=== PATIENT | female | born 1940 | race African-American/Black ===

== ENCOUNTER → 2017-03-13 | Day surgery (SDC) | payer BC ==
[~2017-03-13] MED LIST: AMLO5TAB4 PO; ASPI325T8 PO; CARV25TA PO; CRESTOR40 MG PO; EZET10TA18 PO; HYDROmorphone 2 MG/ML VIAL IV PRN; IV RINGERS,LACTATED 1000ML 1,000 ML IV SCH; LIDOCAINE 1% 1 ML SYRINGE. ID PRN; LIDOCAINE 2% PF Vial for OR 5 ML VIAL. ONE; MORPHINE SULFATE 2 MG/ML DISP.SYRIN. IV PRN; ONDANSETRON PF 4 MG/2 ML VIAL. IV PRN; PROCHLORPERAZINE 10 MG/2 ML VIAL. IV PRN; PROPOFOL 20 ML IV ONE; RANO500T2 PO; fentaNYL PF VIAL 100 MCG/2 ML VIAL IV PRN
--- NOTE | 2017-03-13 08:44 | PDOC1 ---
HISTORY & PHYSICAL H&P Christina Jeffrey [id number] 1940 02/16/2017 11:00 AM 08/13 [facility] [address] [place], [place] [id number] Ph. [phone] Patient: Christina Jeffrey Date of : 1940 Date: 02/16/2017 11:00 AM Visit Type: Consult This 76 year old female presents for H/o colorectal polyp and Altered bowel habits. History of Present Illness: 1. H/o colorectal polyp Prior screening: colonoscopy. Risk Factors: h/o colon polyp. Pertinent negatives include abdominal pain, change in bowel habits, change in stool caliber, constipation, decreased appetite, diarrhea, melena, nausea, rectal bleeding, vomiting, weight gain and weight loss. Additional information: No family history of colon cancer, No family history of Crohn's/colitis and No NSAID/ASA use. 2. Altered bowel habits Pertinent negatives include abdominal pain, change in stool caliber, nausea, vomiting, weight gain and weight loss. Additional information: Patient has some involuntary expulsion of stool. Has also some urgency of evacuation. History of H. Pylori. Has foul smelling stool. INTAKE COMMENTS: Intake Comments: Nurse Note: the pt is here today due to a h/o colon polyps in 2003 and 2012. The pt states that she is having issues with her BM's, she will have a BM without even knowing it and it has a really bad smell to it. PROBLEM LIST: Problem Description Onset Date Chronic Notes Hypertension 02/16/2017 Y PAST MEDICAL/SURGICAL HISTORY (Detailed) Disease/disorder Onset Date Management Date Comments Cardiac stents placed colonoscopy 2012 tracheotomy Coronary angioplasty Colon polyps Colonoscopy 2003 Coronary artery disease Dyslipidemia Hypertension tubal pregnacy tube removal Medications (Active): Started Medication Directions Instruction Stopped amlodipine 5 mg tablet take 1 tablet by oral route every day aspirin 325 mg tablet take 2 tablet by oral route every 6 hours as needed Benadryl 25 mg capsule take 1 capsule by oral route every 4 hours as needed Coreg 25 mg tablet take 1 tablet by oral route 2 times every day with food Crestor 40 mg tablet take 1 tablet by oral route every day ibuprofen 800 mg tablet take 1 tablet by oral route 3 times every day with food Lasix 20 mg tablet take 1 tablet by oral route every day nitroglycerin 0.[address] 1 tablet by sublingual route at the 1st sign of attack; may repeat every 5 min until relief; if pain persists after 3 tablets in 15 min, prompt medical attention is recommended ProAir HFA 90 mcg/actuation aerosol inhaler inhale 1 puff by inhalation route every 4 - 6 hours as needed promethazine-DM 6.25 mg-15 mg/5 mL syrup take 5 milliliter by oral route every 6 hours as needed Ranexa 500 mg tablet,extended release take 1 tablet by oral route 2 times every day Zetia 10 mg tablet take 1 tablet by oral route every day Zovirax 5 % topical ointment apply by topical route every 3 hours 6 times per day to the affected area(s) Allergies: Ingredient Reaction Medication Name Comment PENICILLINS TRIAMTERENE Dyazide LISINOPRIL IODINE HYDROCHLOROTHIAZIDE Dyazide REVIEW OF SYSTEMS System Neg/Pos Details Constitutional Negative Chills, fever, malaise, weight gain and weight loss. ENMT Negative Sore throat. Eyes Negative Double vision. Respiratory Negative Dyspnea and wheezing. Cardio Negative Chest pain and irregular heartbeat/palpitations. GI Positive See HPI. GI Negative Abdominal pain, change in bowel habits, change in stool caliber, constipation, decreased appetite, diarrhea, melena, nausea, see HPI, rectal bleeding and vomiting. Negative Dysuria and hematuria. Endocrine Negative Cold intolerance and heat intolerance. Psych Negative Anxiety. Integumentary Negative Hives and rash. MS Negative Joint pain. Vernon/Lymph Negative Easy bleeding and easy bruising. Allergic/Immuno Negative Food allergies. VITAL SIGNS Time BP mm/Hg Pulse /min Resp /min Temp F Ht ft Ht in Ht cm Wt lb Wt kg BMI kg/ m2 BSA m2 O2 Sat% 10:53 AM 122/80 66 97.1 5.0 7.00 170.18 171.60 77.836 26.88 1.92 98 Time Measured by 10:53 AM [facility] PHYSICAL EXAM: Exam Findings Details Constitutional Normal Well developed. Eyes Normal Conjunctiva - Right: Normal, Left: Normal. Sclera - Right: Normal, Left: Normal. Nasopharynx Normal Lips/teeth/gums - Normal. Neck Exam Normal Inspection - Normal. Thyroid gland - Normal. Respiratory Normal Inspection - Normal. Auscultation - Normal. Cardiovascular Normal Regular rate and rhythm. No murmurs, gallops, or rubs. Vascular Normal Pulses - Carotids: Normal, Femoral: Normal, Dorsalis pedis: Normal. Abdomen Normal Inspection - Normal. Anterior palpation - No guarding. No abdominal tenderness. No hepatic enlargement. No splenic enlargement. No hernia. No Ascites. Skin Normal Inspection - Normal. Extremity Normal No edema. Psychiatric Normal Oriented to time, place, person, and situation. Appropriate mood and effect. Assessment/Plan # Detail Type Description 1. Assessment Change in bowel habit (R19.4). Patient Plan Anal sphincter strengthening exercise. Get stool H.Pylori antigen results from her PCP. If not available then to order stool H. Pylori antigen. 2. Assessment History of colon polyps (Z86.010). Plan Orders Further diagnostic evaluations ordered today include(s) Colonoscopy to be performed today. She is to schedule a follow-up visit with Sabrina Suazo MD upon completion of work-up 3. Assessment H. pylori infection (A04.8). Patient Plan Await stool H. Pylori antigen result. Electronically signed by: Sabrina Suazo MD 02/16/2017 12:29 PM Document generated by: Sabrina Suazo 02/16/2017 12:29 PM Elin Acevedo MD, Family Practice; Esdras Yu MD Internal Medicine; Mary Hartley MD, Internal Medicine; Yan Suazo MD Internal Medicine; Sabrina Suazo MD, Gastroenterology; Chintan Mcbride MD, Rheumatology, S. Miles Corea, Physical Medicine/Rehab JWilmer Spence APRN ------ 03/13/17 Patient seen and examined. No change in H&P SUAZO,SABRINA N MD Mar 13, 2017 08:44
[2017-03-13 08:55] VITALS: BP 134/68
== END | disposition home or self-care (01) ==
LOC: ENDOS 06:57
PROVIDERS: ATTEND Internal Medicine Gastroenterology
DX: Z09 Encounter for follow-up examination after completed treatment for conditions other than malignant neoplasm (principal); Z87.19 Personal history of other diseases of the digestive system; K57.30 Diverticulosis of large intestine without perforation or abscess without bleeding; E78.00 Pure hypercholesterolemia, unspecified; I10 Essential (primary) hypertension; J44.9 Chronic obstructive pulmonary disease, unspecified; Z88.0 Allergy status to penicillin; Z88.8 Allergy status to other drugs, medicaments and biological substances; Z91.041 Radiographic dye allergy status
CPT/HCPCS: 45378; J2001; J2704

== ENCOUNTER → 2020-05-06 | Outpatient (CLI) | payer OTHER ==
[2017-03-13 08:55] VITALS: BP 134/68
[~2020-05-06] MED LIST changes: -EZET10TA18 PO; +EZET10TA20 PO; -HYDROmorphone 2 MG/ML VIAL IV PRN; -IV RINGERS,LACTATED 1000ML 1,000 ML IV SCH; -LIDOCAINE 1% 1 ML SYRINGE. ID PRN; -LIDOCAINE 2% PF Vial for OR 5 ML VIAL. ONE; -MORPHINE SULFATE 2 MG/ML DISP.SYRIN. IV PRN; -ONDANSETRON PF 4 MG/2 ML VIAL. IV PRN; -PROCHLORPERAZINE 10 MG/2 ML VIAL. IV PRN; -PROPOFOL 20 ML IV ONE; -fentaNYL PF VIAL 100 MCG/2 ML VIAL IV PRN
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
== END | disposition home or self-care (01) ==
LOC: RAD 14:46
PROVIDERS: ATTEND Family Medicine
DX: M47.812 Spondylosis without myelopathy or radiculopathy, cervical region (principal); M50.321 Other cervical disc degeneration at C4-C5 level; I25.10 Atherosclerotic heart disease of native coronary artery without angina pectoris; M40.50 Lordosis, unspecified, site unspecified; V89.2XXA Person injured in unspecified motor-vehicle accident, traffic, initial encounter
CPT/HCPCS: 72040; 73030

== ENCOUNTER → 2020-05-17 | Outpatient (CLI) | payer OTHER, MEDICARE ==
[2017-03-13 08:55] VITALS: BP 134/68
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
== END ==
LOC: KCIC MRI 08:39
PROVIDERS: ATTEND Family Medicine
DX: M47.813 Spondylosis without myelopathy or radiculopathy, cervicothoracic region (principal); M75.112 Incomplete rotator cuff tear or rupture of left shoulder, not specified as traumatic; M25.78 Osteophyte, vertebrae; M48.02 Spinal stenosis, cervical region; M75.82 Other shoulder lesions, left shoulder; V89.2XXA Person injured in unspecified motor-vehicle accident, traffic, initial encounter
CPT/HCPCS: 70551; 72141; 73221

== ENCOUNTER 2020-12-07 05:44 | Day surgery (SDC) | payer MEDICARE ==
[~2020-12-07] VITALS: Ht 165.1 cm; Wt 80.3 kg
[~2020-12-07 05:44] MED LIST changes: +BUPIVACAINE MPF 0.5% 30 ML VIAL. ONE; +CLON0.1T PO; +DEXAMETHASONE SOD PHOS 20 MG/5 ML VIAL. ONE; +EPINEPHrine 1 MG/ML VIAL ONE; +FURO20TA3 PO; +LIDOCAINE 1% PF 2 ML VIAL. ONE; +MIDAZOLAM HCL/PF 2 MG/2 ML VIAL. ONE; +ROCURONIUM 50 MG/5 ML VIAL. ONE; +fentaNYL PF VIAL 100 MCG/2 ML VIAL ONE
[2020-12-07] MEDS ORDERED: IV RINGERS,LACTATED 1000ML 1,000 ML IV SCH (06:00)
[2020-12-07] MEDS ORDERED: PROCHLORPERAZINE 10 MG/2 ML VIAL. IVP PRN (06:00)
[2020-12-07] MEDS ORDERED: fentaNYL PF VIAL 100 MCG/2 ML VIAL IVP PRN ×2 (06:00)
[2020-12-07] MEDS ORDERED: CLINDAMYCIN 900MG PREMIX 50 ML IV PRN (06:00)
[2020-12-07] MEDS ORDERED: MORPHINE SULFATE 2 MG/ML VIAL. IVP PRN (06:00)
[2020-12-07] MEDS ORDERED: HYDROmorphone 2 MG/ML VIAL IVP PRN (06:00)
[2020-12-07] MEDS ORDERED: ePHEDrine PF IN SALINE 50 MG/10 ML SYRINGE. IV ONE (06:43)
[2020-12-07] MEDS ORDERED: CLINDAMYCIN 900MG PREMIX 50 ML IV ONE (07:09)
[2020-12-07] MEDS ORDERED: EPINEPHrine VIAL 30 MG/30 ML VIAL ONE (07:10)
[2020-12-07] MEDS ORDERED: ONDANSETRON PF 4 MG/2 ML VIAL. ONE (07:18)
[2020-12-07] MEDS ORDERED: PROPOFOL 10 MG/ML (20ML) VIAL. IV ONE (07:18)
[2020-12-07] MEDS ORDERED: SEVOFLURANE > 120 MINUTES. IH ONE (07:18)
[2020-12-07] MEDS ORDERED: LIDOCAINE 2% PF 5 ML VIAL. ONE (07:18)
[2020-12-07] MEDS ORDERED: DEXAMETHASONE SOD PHOS 4 MG/ML VIAL ONE (07:18)
[2020-12-07] MEDS ORDERED: NEOSTIGMINE METHYLSULFATE 5 MG/5 ML SYRINGE. ONE (07:20)
[2020-12-07] MEDS ORDERED: GLYCOPYRROLATE 1 MG/5 ML VIAL. ONE (07:21)
[2020-12-07] MEDS ORDERED: NALOXONE 0.4 MG/ML VIAL. ONE (07:36)
[2020-12-07] MEDS ORDERED: OXYC1TAB19 PO (09:46)
--- NOTE | 2020-12-07 09:50 | SNU/HH DC ---
DISCHARGE WITH HOME HEALTH DISCHARGE INFORMATION: Discharge Date: Dec 07, 2020 Final Diagnosis: Left shoulder arthroscopy rotator cuff repair capsular release and extensive debridement Condition on Discharge: Stable CODE STATUS: Code Status: Full HOME HEALTH: Face to Face: I certify this patient is under my care and that I, or a nurse practitioner or physician's psychologist research assistant working with me, had a face to face encounter that meets the physician face to face encounter requirements with this patient on [12/07/2020]. Medical Complications: CABG, Other (Rotator cuff repair) RN For Eval/Treatment: No Physical Therapy For: Evalulation/Treatment (Passive range of motion of left shoulder only for 4 weeks postoperatively, note that she did have capsular release for adhesive capsulitis) Pt Meets Homebound Status: Fatigue w/ amb. POST DISCHARGE ORDERS: Activity Instructions for Disc: Other, see below (No active lifting of left elbow away from side of body, may do fine motor use with the elbow at the side such as eating writing and typing) Weight Bearing Status after Di: Non weight bearing DIET AFTER DISCHARGE: Cardiac Wound/Incision Care: Change dressing (Remove dressing in 2 days may then shower) FOLLOW-UP: Follow up with: Dr. Raza or Bárbara 7 to 10 days TREATMENT/EQUIPMENT ORDERS: Adaptive Equipment Issued: None (Shoulder immobilizer, must wear at night or sleeping and may remove during the day to do fine motor use with arm at side or shower as above) CERTIFICATION STATEMENT: Certification Statement: Certification Statement: Based on the above finding, I certify that this patient is confined to the home and needs intermittent correction care, physical therapy and/or speech therapy, or continues to need occupational therapy.~ This patient is under my care, and I have initiated the establishment of the plan of care.~ This patient will be followed by myself or a community physician who will periodically review the plan of care. Home Meds Reported Medications Furosemide (FUROSEMIDE) 20 Mg Tablet, 20 MG PO DAILY for NA, TAB 12/02/20 Clonidine Hcl (CLONIDINE HCL) 0.1 Mg Tablet, 0.1 MG PO DAILY for NA, TAB 12/02/20 Ranolazine (RANEXA) 500 Mg Tab.er.12h, 1 TAB PO BID, #60 TAB 3 Refills 03/13/17 Aspirin (ASPIRIN) 325 Mg Tablet, 1 TAB PO DAILY, #30 TAB 5 Refills 03/13/17 Carvedilol (COREG) 25 Mg Tablet, 1 TAB PO BID, #60 TAB 5 Refills 03/13/17 Ezetimibe (ZETIA) 10 Mg Tablet, 1 TAB PO DAILY, #30 TAB 5 Refills 03/13/17 Rosuvastatin Calcium (CRESTOR) 40 Mg Tablet, 1 TAB PO DAILY, #30 TAB 5 Refills 03/13/17 HECTOR RAZA MD Dec 07, 2020 09:50
[2020-12-07] MEDS ORDERED: IPRATRPIUM/ALBUTEROL 0.5/2.5MG 3 ML NEBU. ONE (11:27)
[2020-12-07] MEDS ORDERED: IPRATRPIUM/ALBUTEROL 0.5/2.5MG 3 ML NEBU. NEB ONE (11:30)
[2020-12-07 12:00] VITALS: BP 158/84
--- NOTE | 2020-12-07 13:33 | PDOC4 ---
Operative Note Operative Note Date of surgery: 12/07/2020 Preoperative diagnosis: Left shoulder adhesive capsulitis and suspected high- grade rotator cuff tear Postoperative diagnosis: Same with actual full-thickness distal supraspinatus tear adhesive capsulitis labral fraying and chondral flap tear humeral head Operative procedure: Left shoulder arthroscopy arthroscopic rotator cuff repair, capsular release debridement labrum and chondroplasty humeral head Surgeon: Luz Marina Window Unit Air Conditioning Mechanic: Tung chapa assist Anesthesia: General plus scalene block Estimated blood loss: 5 cc Complications: None Operative indications: Please see orthopedic clinic notes for detailed operative indications and note that patient has both pain stiffness and weakness of the left shoulder ongoing unresponsive to nonoperative management. MRI shows a suspicion of a high-grade rotator cuff tear and clinically she has adhesive capsulitis. We had talked about addressing any pathology present including the possibility of rotator cuff tear capsular release. We also talked about the possibility of continued pain nonhealing infection nerve or blood vessel damage medical or other anesthetic complications among others and the typical postoperative restrictions and need for physical therapy and home exercises. All her questions were answered she wishes to proceed with surgical evaluation and treatment Operative text: Patient was identified procedure verified patient placed in the supine position on the operating table. After adequate amounts of general anesthesia plus a pre-existing scalene block were obtained patient was placed in the decubitus position left side up all bony prominences were well-padded and the left shoulder was prepped and draped in standard sterile fashion. She was noted to have decreased range of motion in all planes and no instability. She was then placed in the arthroscopic arm cherry with a total of 10 pounds of traction and after timeout was performed patient procedure identified and verified a standard posterior portal was established an anterior portal established using spinal needle localization and the shoulder joint was systematically examined. She was noted to have significant superior labral fraying which was trimmed back to stable tissue no evidence of compromise of the biceps anchor or subscapularis insertion. She did have adhesive capsulitis and a chondral flap tear of the humeral head which was debrided back to stable tissue and was not a full-thickness defect. Capsular release was then performed. She was noted to have a full-thickness tear of the supraspinatus tendon at its most distal footprint. The subacromial space was then entered bursectomy was performed to allow visualization and the rotator cuff footprint was debrided back to stable tissue bleeding without decortication. A total of 2 juggernaut double loaded anchors were placed along the medial row and sutures were placed in a simple fashion. Lateral row fixation was then carried out obtaining a watertight repair examined under all degrees of internal/external rotation shoulder motion was returned to full without instability. The joint was drained of arthroscopic fluid portals closed with nylon suture sterile dressings were applied patient was placed in immobilizer returned to recovery room stable condition having tolerated procedure well. Tung chapa assist was present for the procedure assisted in patient positioning prepping draping manipulation of equipment suture management closure and dressings HECTOR LOW MD Dec 07, 2020 13:33
== END 2020-12-07 12:55 | disposition home or self-care (01) ==
LOC: SURG 05:44
PROVIDERS: ATTEND Orthopaedic Surgery
DX: M75.02 Adhesive capsulitis of left shoulder (principal); M75.102 Unspecified rotator cuff tear or rupture of left shoulder, not specified as traumatic; E78.00 Pure hypercholesterolemia, unspecified; I10 Essential (primary) hypertension; J44.9 Chronic obstructive pulmonary disease, unspecified; Z87.891 Personal history of nicotine dependence; Z79.82 Long term (current) use of aspirin; Z79.899 Other long term (current) drug therapy; Z98.890 Other specified postprocedural states; Z88.1 Allergy status to other antibiotic agents; Z88.0 Allergy status to penicillin; Z91.041 Radiographic dye allergy status; Z88.8 Allergy status to other drugs, medicaments and biological substances
CPT/HCPCS: 29827; 64415; 94640; A4565; A4930; C1713; J0171; J1100; J2250; J2310; J2405; J2704; J2710; J3010; J3490; A4223; J0690